=== PATIENT | female | born 1990 | race Caucasian/White ===

== ENCOUNTER 2017-02-23 17:18 | Emergency (ER) | payer OTHER ==
[2017-02-23 23:17] VITALS: BP 142/87
== END 2017-02-23 23:17 | disposition home or self-care (01) ==
LOC: ED 17:18
DX: F41.9 Anxiety disorder, unspecified (principal); R03.0 Elevated blood-pressure reading, without diagnosis of hypertension; M19.90 Unspecified osteoarthritis, unspecified site; Z90.49 Acquired absence of other specified parts of digestive tract; Z90.89 Acquired absence of other organs